=== PATIENT | female | born 1940 | race Caucasian/White ===

== ENCOUNTER 2020-03-09 17:39 | Emergency (ER) | payer BC ==
[~2020-03-09] VITALS: Ht 167.6 cm; Wt 64.5 kg
[2020-03-09 17:46] VITALS: Ht 167.6 cm; Wt 64.5 kg
[2020-03-09] MEDS ORDERED: COUMADIN5 MG PO (17:51)
[2020-03-09] MEDS ORDERED: PRAVACHOL40 MG PO (17:51)
[2020-03-09] MEDS ORDERED: PROTONIX40 MG PO (17:51)
[2020-03-09] MEDS ORDERED: BAYER CHEWABLE81 MG PO (17:51)
[2020-03-09] MEDS ORDERED: ALDACTONE25 MG PO (17:52)
[2020-03-09] MEDS ORDERED: BUMETANIDE0.5 MG PO (17:52)
[2020-03-09] MEDS ORDERED: COZAAR25 MG PO (17:53)
[2020-03-09 18:37] LABS: BASOPHILS 0 % (0-2); EOSINOPHILS 0.2 % (0-7); HEMATOCRIT 37.7 % (36.0-48.0); HEMOGLOBIN 12.7 g/dL (12-16); IMMATURE GRANULOCYTES 0.2 % (0-5); LYMPHOCYTES 19.5 % (15-50); MCH 32.6 pg (26.0-34.0); MCHC 33.7 g/dL (31.0-37.0); MCV 96.7 fL (80.0-100.0); MEAN PLATELET VOLUME 8.8 fL (7.4-10.4); MONOCYTES 5.4 % (2-11); NEUTROPHILS 74.7 % (40-80); PLATELET COUNT 137 10x3/uL (130-400); RDW 12.6 % (11.5-14.5)
[2020-03-09 18:44] LABS: INR 2.36 (0.85-1.17); PROTIME 25.4 SECONDS (11.6-15.0)
[2020-03-09 18:47] LABS: CALC OSMOLALITY 277 mosm/kg (275-300); CALCIUM 9.1 mg/dL (8.5-10.1); CARBON DIOXIDE 26.8 mmol/L (21.0-32.0); CHLORIDE - SERUM 99 mmol/L (98-107); CREATININE - SERUM 1.2 mg/dL (0.6-1.3); GLUCOSE 154 mg/dL (74-106); POTASSIUM - SERUM 3.8 mmol/L (3.5-5.1); SODIUM 134 mmol/L (136-145); UREA NITROGEN 33 mg/dL (7-18); eGFR NON AFRICAN AMERICAN 46 mL/min (90-120)
[2020-03-09 19:01] LABS: ALBUMIN 3.7 g/dL (3.4-5.0); ALKALINE PHOSPHATASE 90 U/L (30-120); ALT (SGPT) 22 U/L (10-68); BILIRUBIN - TOTAL 0.39 mg/dL (0.2-1.3); CREATINE KINASE 51 UL (21-215); MAGNESIUM - SERUM 2.1 mg/dL (1.8-2.4); PROTEIN - SERUM 7.2 g/dL (6.4-8.2); THYROID STIMULATING HORMONE 2.55 uIU/mL (0.36-3.74); TROPONIN-I < 0.017 ng/mL (0.000-0.060)
[2020-03-09] MEDS ORDERED: MECLIZINE HCL25 MG PO (19:11)
[2020-03-09 21:30] VITALS: BP 139/65
== END 2020-03-09 21:30 | disposition home or self-care (01) ==
LOC: D.ER 17:39
PROVIDERS: Family Medicine
DX: R42 Dizziness and giddiness (principal); E86.0 Dehydration; I10 Essential (primary) hypertension; Z95.0 Presence of cardiac pacemaker